=== PATIENT | female | born 1995 | race Caucasian/White ===

== ENCOUNTER 2016-04-12 | Outpatient (CLI) | END 2016-04-12 19:42 | disposition critical access hospital (66) | CPT/HCPCS: A0425; A0427 ==

== ENCOUNTER 2016-04-12 20:00 | Emergency (ER) | payer OTHER ==
[2016-04-13] MEDS ORDERED: SODIUM CHLORIDE 0.9% 1,000 ML IV STA ×2 (09:19→09:51)
== END 2016-04-13 16:00 ==
DX: T44.6X2A Poisoning by alpha-adrenoreceptor antagonists, intentional self-harm, initial encounter (principal); R42 Dizziness and giddiness; Y92.019 Unspecified place in single-family (private) house as the place of occurrence of the external cause; F32.9 Major depressive disorder, single episode, unspecified; R45.851 Suicidal ideations

== ENCOUNTER 2016-10-12 20:22 | Outpatient (CLI) | payer OTHER | END 2016-10-12 20:23 | disposition critical access hospital (66) | DX: R45.851 Suicidal ideations (principal) | CPT/HCPCS: A0425; A0429 ==

== ENCOUNTER 2016-10-12 20:36 | Emergency (ER) | payer OTHER ==
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
[2016-10-12 21:33] LABS: BASOPHILS % (AUTO) 0.7 %; EOSINOPHILS % (AUTO) 0.5 %; HCT - HEMATOCRIT 39.5 % (37.0-47.0); HGB - HEMOGLOBIN 13.5 g/dL (12.0-16.0); LYMPHOCYTES # (AUTO) 1.6 10^3/uL (1.5-3.5); LYMPHOCYTES % (AUTO) 33.5 %; MEAN CORPUSCULAR HEMOGLOBIN 29.8 pg (27.0-31.0); MEAN CORPUSCULAR HGB CONC 34.2 g/dL (32.0-36.0); MEAN CORPUSCULAR VOLUME 87.2 fL (81.0-99.0); MEAN PLATELET VOLUME 8.8 fL (7.9-10.8); MONOCYTES # (AUTO) 0.4 10^3/uL (0.0-1.0); MONOCYTES % (AUTO) 9.3 %; NEUTROPHILS # (AUTO) 2.7 10^3/uL (1.5-6.6); NUCLEATED RED BLOOD CELLS AUTO 0.1 /100WBC; RED BLOOD COUNT 4.53 10^6/uL (4.20-5.40); RED CELL DISTRIBUTION WIDTH 12.8 % (12.0-15.0); UNCORRECTED WHITE BLOOD COUNT 4.8 x10^3/uL; WHITE BLOOD COUNT 4.8 x10^3/uL (4.8-10.8)
[2016-10-12 21:59] LABS: ACETAMINOPHEN < 10 ug/mL (10-30); ALBUMIN/GLOBULIN RATIO 1.4 (1.0-2.2); BUN - BLOOD UREA NITROGEN 9 mg/dL (6-20); CARBON DIOXIDE - CO2 22 mmol/L (21-32); CHLORIDE 109 mmol/L (101-111); CREATININE 0.7 mg/dL (0.4-1.0); GFR - MDRD 105 (>89); GLUCOSE 82 mg/dL (70-100); LIPASE 28 U/L (22-51); POTASSIUM 3.4 mmol/L (3.5-5.0); SALICYLATE < 6.0 mg/dL; SODIUM 140 mmol/L (135-145); TOTAL PROTEIN 7.3 g/dL (6.7-8.2)
[2016-10-12 22:09] LABS: BILIRUBIN,TOTAL 0.5 mg/dL (0.2-1.0)
[2016-10-13 00:39] LABS: BILIRUBIN,URINE NEGATIVE (NEGATIVE); UA w/ MICROSCOPIC CHARGE YES
[2016-10-13 00:50] LABS: UR CULTURE IF IND NOT INDICATED
[2016-10-13] MEDS ORDERED: POTASSIUM BICARB 25 MEQ TABLET PO STA (06:15)
[2016-10-13] MEDS ORDERED: POTASSIUM BICARB 25 MEQ TABLET PO ONE (06:24)
[2016-10-13 08:07] VITALS: BP 107/55
== END 2016-10-13 09:42 | disposition home or self-care (01) ==
LOC: EDBD → EDUNIT# → ED 20:36
DX: F43.10 Post-traumatic stress disorder, unspecified (principal); F32.9 Major depressive disorder, single episode, unspecified; R45.851 Suicidal ideations; Z91.5 Personal history of self-harm
CPT/HCPCS: 36415; 80053; 80306; 80307; 80320; 80329; 81001; 83690; 85025; 99283; A9270; 81003; 87086

== ENCOUNTER 2016-10-16 16:08 | Emergency (ER) | payer OTHER ==
[2016-10-16] MEDS ORDERED: SODIUM CHLORIDE 0.9% 1,000 ML IV ONE ×2 (16:49→17:01)
[2016-10-16] MEDS ORDERED: ONDANSETRON 4 MG/2 ML VIAL IVP STA (16:49)
[2016-10-16] MEDS ORDERED: LIDOCAINE VISCOUS 2% 15 ML UDC MM STA (16:49)
[2016-10-16] MEDS ORDERED: MAG HYDROX/AL HYDROX/SIMETH 30 ML UDC PO STA (16:49)
--- NOTE | 2016-10-16 16:51 | ED Physician Documentation ---
PD HPI ABD PAIN - Stated complaint Stated Complaint: VOMITING,DIARRHEA - Chief complaint Chief Complaint: Abd Pain - History obtained from History obtained from: Patient - History of Present Illness Timing - onset: Other (The last 3 days she has had constant upper abdominal burning radiating into the chest that is worse when she is upright. It is associated with watery diarrhea which is worse than a few episodes of vomiting. No blood from either end. No fevers. 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 Psych: Post traumatic stress disorder Other Past Medical History: IBS - Past Surgical History Past Surgical History: Yes /RESIDENTIAL SERVICE TECHNICIAN: Dilation and currettage - Present Medications Home Medications: Ambulatory Orders Medication Instructions Recorded Confirmed traZODone [Desyrel] 100 mg PO HS 10/12/16 10/16/16 - Allergies Allergies/Adverse Reactions: Allergies Allergy/AdvReac Type Severity Reaction Status Date / Time No Known Drug Allergies Allergy Verified 10/12/16 20:39 - Social History Does the pt smoke?: No Smoking Status: Never smoker Does the pt drink ETOH?: No Does the pt have substance abuse?: No - Immunizations Immunizations are current?: Yes - POLST Patient has POLST: No PD ED PE NORMAL - Vitals Vital signs reviewed: Yes - General General: Alert and oriented X 3, No acute distress - Respiratory Respiratory: No respiratory distress, Clear bilaterally - Abdomen Abdomen: Normal bowel sounds, Soft, Non tender, Non distended - Neuro Neuro: Alert and oriented X 3, Normal speech - Psych Psych: Normal mood, Normal affect Results - Vitals Vitals: Vital Signs - 24 hr 10/16/16 10/16/16 16:10 17:45 Temperature 36.7 C Heart Rate 85 79 Respiratory 16 18 Rate Blood Pressure 128/78 128/69 O2 Saturation 100 100 Oxygen O2 Source Room air - Labs Labs: Laboratory Tests 10/16/16 10/16/16 10/16/16 17:06 17:06 18:03 Sodium 139 Potassium 3.9 Chloride 106 Carbon Dioxide 24 Anion Gap 9.0 BUN 5 L Creatinine 0.7 Estimated GFR (MDRD) 105 Glucose 106 H Calcium 9.4 Total Bilirubin 0.8 AST 26 ALT 21 Alkaline Phosphatase 79 Total Protein 8.2 Albumin 4.9 Globulin 3.3 Albumin/Globulin Ratio 1.5 Lipase 25 Urine Color YELLOW Urine Clarity HAZY Urine pH 6.0 Ur Specific [place] <=1.005 Urine Protein NEGATIVE Urine Glucose (UA) NEGATIVE Urine Ketones NEGATIVE Urine Occult Blood TRACE-LYSE Urine Nitrite NEGATIVE Urine Bilirubin NEGATIVE Urine Urobilinogen 0.2 (NORMAL) Ur Leukocyte Esterase SMALL H Ur Microscopic Review INDICATED Urine Culture Comments Not Reportable Urine HCG, Qual NEGATIVE H. pylori IgG Antibody Negative PD MEDICAL DECISION MAKING - ED course ED course: She has symptoms reminiscent of gastritis with a benign abdominal exam and no tenderness. Labs are unremarkable. Improved but not completely better after treatment here but driving. Nontender on repeat evaluation just prior to discharge. Departure - Departure Disposition: 01 Home, Self Care Clinical Impression: Cystitis Abdominal pain Qualifiers: Abdominal location: epigastric Qualified Code(s): R10.13 - Epigastric pain Condition: Good Record reviewed to determine appropriate education?: Yes Instructions: ED UTI Cystitis Female, Abdominal Pain Comments: Return in 12 hours to 24 hours if not improved. Or check in with your flight surgeon tomorrow.
[2016-10-16] MEDS ORDERED: LIDOCAINE VISCOUS 2% 15 ML UDC MM ONE (17:01)
[2016-10-16] MEDS ORDERED: ONDANSETRON 4 MG/2 ML VIAL ONE (17:01)
[2016-10-16] MEDS ORDERED: MAG HYDROX/AL HYDROX/SIMETH 30 ML UDC ONE (17:01)
[2016-10-16 17:23] LABS: H. PYLORI IGG ANTIBODY Negative (Negative); HPYLORI NEG QC Negative (Negative); HPYLORI POS QC POSITIVE (Positive)
[2016-10-16 17:25] LABS: ALBUMIN/GLOBULIN RATIO 1.5 (1.0-2.2); BILIRUBIN,TOTAL 0.8 mg/dL (0.2-1.0); CALCIUM 9.4 mg/dL (8.5-10.3); CREATININE 0.7 mg/dL (0.4-1.0); POTASSIUM 3.9 mmol/L (3.5-5.0); TOTAL PROTEIN 8.2 g/dL (6.7-8.2)
[2016-10-16] MEDS ORDERED: KETOROLAC 60 MG/2 ML VIAL IVP STA (17:39)
[2016-10-16] MEDS ORDERED: CALCIUM CARBONATE CHEW 500 MG TABLET PO STA (17:39)
[2016-10-16] MEDS ORDERED: CALCIUM CARBONATE CHEW 500 MG TABLET ONE (17:41)
[2016-10-16] MEDS ORDERED: KETOROLAC 30 MG/ML VIAL ONE (17:41)
[2016-10-16 18:16] LABS: BILIRUBIN,URINE NEGATIVE (NEGATIVE)
[2016-10-16 18:34] LABS: HCG UR QUAL NEGATIVE; UA w/ MICROSCOPIC CHARGE YES
[2016-10-16] MEDS ORDERED: HYDROcod/ACET 5/325 Prepack 6 PO STA (18:38)
[2016-10-16] MEDS ORDERED: ONDANSETRON ODT 4 MG Prepack 2 TL STA (18:38)
[2016-10-16] MEDS ORDERED: NITROFURANTOIN MACRO 100 MG CAPSULE PO STA (18:38)
[2016-10-16] MEDS ORDERED: HYDROcod/ACET 5/325 Prepack 6 PO ONE (18:41)
[2016-10-16] MEDS ORDERED: NITROFURANTOIN MACRO 100 MG CAPSULE PO ONE (18:42)
[2016-10-16] MEDS ORDERED: ONDANSETRON ODT 4 MG Prepack 2 TL ONE (18:42)
[2016-10-16 18:43] LABS: UR CULTURE IF IND NOT INDICATED
[2016-10-16 18:52] VITALS: BP 129/70
== END 2016-10-16 18:58 | disposition home or self-care (01) ==
LOC: ED 16:08
DX: N30.90 Cystitis, unspecified without hematuria (principal); R10.13 Epigastric pain
CPT/HCPCS: 36415; 80053; 81001; 81025; 83690; 87339; 96374; 96375; 99284; A9270; 81003; 87086

== ENCOUNTER 2016-10-19 04:46 | Emergency (ER) | payer OTHER ==
--- NOTE | 2016-10-19 05:25 | ED Physician Documentation ---
PD HPI ABD PAIN - Stated complaint Stated Complaint: ABDOMINAL PAIN,VOMITING - Chief complaint Chief Complaint: Abd Pain - History obtained from History obtained from: Patient - History of Present Illness Timing - onset: How many days ago (4-5 days) Timing - duration: Days Timing - details: Abrupt onset, Waxing and waning Quality: Cramping, Pain Location: RUQ, Epigastric Radiation: Right flank Improved by: Other (no ameliorating factors) Worsened by: Eating (distinctly worse with PO intake, solids more than liquids) Associated symptoms: Nausea, Loss of appetite. No: Fever, Vomiting, Diarrhea, Constipation, Dysuria, Hematuria Recently seen: Clinic, Emergency Dept - Additional information Additional information: T+R Monday (10/16) from this ED for same symptoms (abdominal pain, nausea, decreased appetite). evaluated at [facility] yesterday for ongoing symptoms; patient was prescribed (yesterday) omeprazole, zofran, bactrim (for UTI), vicodin. She returns for ongoing/worsening symptoms. 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: Dilation and currettage - Present Medications Home Medications: Ambulatory Orders Medication Instructions Recorded Confirmed Hydrocodone/Acetaminophen [Vicodin 1 - 2 tab PO Q6HR PRN 10/19/16 10/19/16 5-300 mg Tablet] Omeprazole 20 mg PO BID 10/19/16 10/19/16 Ondansetron Odt [Zofran Odt] 4 mg PO Q6HR PRN 10/19/16 10/19/16 Sucralfate [Carafate] 1 gm PO ACHS #30 tablet 10/19/16 Sulfamethox/Trimeth 800/160 1 tab PO BID 10/19/16 10/19/16 [Bactrim Ds] - Allergies Allergies/Adverse Reactions: Allergies Allergy/AdvReac Type Severity Reaction Status Date / Time No Known Drug Allergies Allergy Verified 10/19/16 04:57 - Social History Does the pt smoke?: No Smoking Status: Never smoker Does the pt drink ETOH?: No Does the pt have substance abuse?: No - Immunizations Immunizations are current?: Yes - POLST Patient has POLST: No Results - Vitals Vitals: Oxygen O2 Source Room air - Labs Labs: Laboratory Tests 10/19/16 10/19/16 10/19/16 06:05 06:05 06:05 WBC 5.6 RBC 4.66 Hgb 14.2 Hct 41.3 MCV 88.7 MCH 30.6 MCHC 34.5 RDW 12.8 Plt Count 292 MPV 9.8 Neut # 2.7 Lymph # 2.2 [place] # 0.6 Eos # 0.1 Baso # 0.0 Absolute Nucleated RBC 0.00 Nucleated RBCs 0.1 Sodium 140 Potassium 4.3 Chloride 109 Carbon Dioxide 24 Anion Gap 7.0 BUN 8 Creatinine 0.8 Estimated GFR (MDRD) 90 Glucose 97 Calcium 8.4 L Total Bilirubin 0.4 AST 21 ALT 19 Alkaline Phosphatase 64 Total Protein 6.8 Albumin 4.2 Globulin 2.6 Albumin/Globulin Ratio 1.6 Lipase 23 Urine Color YELLOW Urine Clarity CLEAR Urine pH 6.5 Ur Specific [place] 1.020 Urine Protein NEGATIVE Urine Glucose (UA) NEGATIVE Urine Ketones NEGATIVE Urine Occult Blood NEGATIVE Urine Nitrite NEGATIVE Urine Bilirubin NEGATIVE Urine Urobilinogen 0.2 (NORMAL) Ur Leukocyte Esterase NEGATIVE Ur Microscopic Review NOT INDICATED Urine Culture Comments NOT INDICATED PD MEDICAL DECISION MAKING - ED course Complexity details: reviewed old records, reviewed results, re-evaluated patient , considered differential, d/w patient ED course: Patient describes difficulty with tolerating PO due to worsening of her abdominal pain when she takes PO. However, despite nausea, she denies vomiting. She appears adequately hydrated on exam, but given 1 liter IV normal saline based on her description of diminished PO intake. She had been given toradol in ED on her last visit without relief, as well as GI cocktail, which she says made symptoms worse. RUQ US is unremarkable, as is blood tests. I discussed these results with her as well as my suspicion that she has PUD. Rx carafate, and I encouraged her to continue the medications that were prescribed by [facility], return to ED if worse, and contact [facility] in the morning to arrange for follow-up appointment. Departure - Departure Disposition: 01 Home, Self Care Clinical Impression: Abdominal pain Qualifiers: Abdominal location: upper abdomen, unspecified Qualified Code(s): R10.10 - Upper abdominal pain, unspecified Condition: Good Instructions: ED Abdominal Pain Unkn Cause Follow-Up: [facility] [Provider Group] Prescriptions: Sucralfate [Carafate] 1 gm PO ACHS #30 tablet Discharge Date/Time: 10/19/16 08:22
[2016-10-19] MEDS ORDERED: SODIUM CHLORIDE 0.9% 1,000 ML IV STA (05:53)
[2016-10-19] MEDS ORDERED: PANTOPRAZOLE 80 MG in SODIUM CHLORIDE 0.9% 100ML 100 ML IV STA (05:54)
[2016-10-19] MEDS ORDERED: SODIUM CHLORIDE 0.9% 1,000 ML IV ONE (05:59)
[2016-10-19] MEDS ORDERED: SODIUM CHLORIDE 0.9% MINIBAG 100 ML IV ONE (05:59)
[2016-10-19] MEDS ORDERED: PANTOPRAZOLE 40 MG VIAL ONE (05:59)
[2016-10-19 06:22] LABS: BILIRUBIN,URINE NEGATIVE (NEGATIVE); PH,URINE 6.5 PH (5.0-7.5)
[2016-10-19 06:24] LABS: BASOPHILS % (AUTO) 0.4 %; EOSINOPHILS # (AUTO) 0.1 10^3/uL (0.0-0.7); EOSINOPHILS % (AUTO) 1.7 %; HCT - HEMATOCRIT 41.3 % (37.0-47.0); HGB - HEMOGLOBIN 14.2 g/dL (12.0-16.0); LYMPHOCYTES # (AUTO) 2.2 10^3/uL (1.5-3.5); LYMPHOCYTES % (AUTO) 38.6 %; MEAN CORPUSCULAR HEMOGLOBIN 30.6 pg (27.0-31.0); MEAN CORPUSCULAR HGB CONC 34.5 g/dL (32.0-36.0); MEAN CORPUSCULAR VOLUME 88.7 fL (81.0-99.0); MEAN PLATELET VOLUME 9.8 fL (7.9-10.8); MONOCYTES # (AUTO) 0.6 10^3/uL (0.0-1.0); NEUTROPHILS # (AUTO) 2.7 10^3/uL (1.5-6.6); NEUTROPHILS % (AUTO) 49.3 %; NUCLEATED RED BLOOD CELLS AUTO 0.1 /100WBC; RED BLOOD COUNT 4.66 10^6/uL (4.20-5.40); RED CELL DISTRIBUTION WIDTH 12.8 % (12.0-15.0); UNCORRECTED WHITE BLOOD COUNT 5.6 x10^3/uL; WHITE BLOOD COUNT 5.6 x10^3/uL (4.8-10.8)
[2016-10-19 06:27] LABS: UA CHARGE (STRIP ONLY) YES; UR CULTURE IF IND NOT INDICATED
[2016-10-19 07:05] LABS: ALBUMIN/GLOBULIN RATIO 1.6 (1.0-2.2); BILIRUBIN,TOTAL 0.4 mg/dL (0.2-1.0); CALCIUM 8.4 mg/dL (8.5-10.3); CREATININE 0.8 mg/dL (0.4-1.0); POTASSIUM 4.3 mmol/L (3.5-5.0); TOTAL PROTEIN 6.8 g/dL (6.7-8.2)
--- NOTE | 2016-10-19 07:53 | Ultrasound Preliminary Report ---
Exam: US Abdomen Limited IMPRESSION: 1. Mild fatty liver infiltration. 2. Normal ultrasound appearance of the gallbladder and bile ducts. [facility] SITE ID: [id number]
--- NOTE | 2016-10-19 07:55 | Ultrasound Report ---
EXAM: ABDOMEN ULTRASOUND LIMITED, RUQ EXAM DATE: 10/19/2016 07:32 AM. CLINICAL HISTORY: Abdominal pain. Right upper quadrant pain. COMPARISON: None. TECHNIQUE: Real-time scanning was performed with static images obtained. FINDINGS: Liver: Mildly increased hepatic echogenicity. No focal hepatic lesions. 14.4 cm. Main portal vein hanna w: Hepatopetal. Gallbladder: Normal. No stones, wall thickening, or sonographic Martines's sign. Biliary System: CBD measures 4.1 mm. No intrahepatic or extrahepatic ductal dilatation. Other: Right kidney 10.0 cm in length without hydronephrosis. IMPRESSION: 1. Mild fatty liver infiltration. 2. Normal ultrasound appearance of the gallbladder and bile ducts. [facility] Referring Provider Line: [phone] SITE ID: [id number]
[2016-10-19] MEDS ORDERED: SUCRALFATE 1 GM/10 ML UDC PO STA (08:06)
[2016-10-19] MEDS ORDERED: SUCRALFATE 1 GM/10 ML UDC ONE (08:16)
[2016-10-19 08:20] VITALS: BP 118/66
== END 2016-10-19 08:22 | disposition home or self-care (01) ==
LOC: ED 04:46
DX: R10.11 Right upper quadrant pain (principal)
CPT/HCPCS: 36415; 76705; 80053; 81003; 83690; 85025; 96365; 99283; 99284; A9270; 81001; 87086